=== PATIENT | male | born 1965 | race Two or more races ===

== ENCOUNTER 2019-12-11 11:07 | Emergency (ER) | payer OTHER, MEDICAID ==
[~2019-12-11] VITALS: Ht 172.7 cm; Wt 99.3 kg
--- NOTE | 2019-12-11 11:10 | NUR ---
jacek, from home, c/o lower back pain x 10 days,worsening the last 3 days 07/15 ps, s/p fall, was at [facility] 12/02/19 for same reason, to er bed 10, hooked to monitor, changed to hosp gown, warm blanket provided, awaiting md meléndez.
--- NOTE | 2019-12-11 11:26 | NUR ---
dr patiño at bedside
[2019-12-11] MEDS ORDERED: HYDROMORPHONE 1 MG/1 ML DISP.SYRIN ONE (11:44)
[2019-12-11] MEDS ORDERED: DIAZEPAM 5 MG TABLET ONE ×2 (11:44→14:02)
[2019-12-11] MEDS ORDERED: HYDROMORPHONE 1 MG/1 ML DISP.SYRIN IV ONE (12:00)
[2019-12-11] MEDS ORDERED: DIAZEPAM 10 MG TABLET PO ONE ×2 (12:00→14:00)
[2019-12-11] MEDS ORDERED: LIDOCAINE 5% (PATCH) 1 EA PATCH TP SCH (13:30)
--- NOTE | 2019-12-11 14:10 | NUR ---
IV removed. Catheter intact and site benign. Pressure and 4x4 applied to site. No bleeding noted.Patient discharged to home in stable condition. Written and verbal after care instructions given. Patient verbalizes understanding of instruction.
--- NOTE | 2019-12-11 14:17 | NUR ---
patient able to ambulate during discharge
[2019-12-11 14:22] VITALS: BP 141/70
== END 2019-12-11 14:23 | disposition home or self-care (01) ==
LOC: ER 11:07
DX: M54.5 Low back pain (principal); M79.7 Fibromyalgia; E11.40 Type 2 diabetes mellitus with diabetic neuropathy, unspecified; Z95.818 Presence of other cardiac implants and grafts
CPT/HCPCS: 72131; 72192; 73564; 73590; 96374; 99285; J1170

== ENCOUNTER 2020-12-31 23:37 | Emergency (ER) | payer OTHER, MEDICAID ==
[~2020-12-31] VITALS: Ht 172.7 cm; Wt 95.3 kg
[2021-01-01 00:07] LABS: MONOCYTES # (AUTO) 0.3 /CMM (0.1-1.30)
[2021-01-01 00:10] LABS: BASOPHILS % (AUTO) 0.8 % (0.0-2.0); EOSINOPHILS % (AUTO) 1.3 % (0.0-6.0); HEMATOCRIT 43 % (39-51); HEMOGLOBIN 14.3 g/dL (13.5-17.5); LYMPHOCYTES % (AUTO) 22.7 % (20.0-44.0); MEAN CORPUSCULAR HGB CONC 33 g/dl (31.0-36.0); MEAN CORPUSCULAR VOLUME 88 fL (80-96); MONOCYTES % (AUTO) 6.6 % (2.0-12.0); NEUTROPHILS % (AUTO) 68.6 % (43.0-81.0); PLATELET COUNT (AUTO) 88 /CMM (150-450); RED BLOOD CELL COUNT(AUTO) 4.87 MIL/uL (4.5-6.0); WHITE BLOOD COUNT (AUTO) 4.3 K/uL (4.3-11.0)
[2021-01-01 00:14] LABS: POTASSIUM 4.3 mmol/L (3.5-5.1)
--- NOTE | 2021-01-01 00:15 | NUR ---
PATIENT TO ER BED 12 C/O LOWER BILATERAL ABDOMINAL PAIN AND RIGHT LOWER BACK.PATIENT IS AAOX4. NO SOB. BREATHING EVENLY AND UNLABORED ON ROOM AIR.
[2021-01-01] MEDS ORDERED: MORPHINE SULFATE INJ 4 MG/ML DISP.SYRIN ONE (00:16)
[2021-01-01 00:18] LABS: CALCIUM, SERUM 8.9 mg/dL (8.5-10.1)
[2021-01-01] MEDS ORDERED: MORPHINE SULFATE INJ 4 MG/ML DISP.SYRIN IV ONE (00:30)
[2021-01-01] MEDS ORDERED: IOHEXOL-300 100 ML VIAL IV ONE (00:34)
[2021-01-01 01:03] LABS: NEUTROPHILS % (MANUAL) 69 (42-76)
[2021-01-01 01:04] LABS: EOSINOPHILS % (MANUAL) 4 % (0-4); LYMPHOCYTES % (MANUAL) 20 % (16-48); MONOCYTES % (MANUAL) 7 % (0-11.0)
[2021-01-01] MEDS ORDERED: HYDROCODONE/APAP 5/325MG TABLET ONE (01:57)
[2021-01-01] MEDS ORDERED: HYDROCODONE/APAP 5/325MG TABLET PO ONE (02:00)
--- NOTE | 2021-01-01 02:14 | NUR ---
IV removed. Catheter intact and site benign. Pressure and 4x4 applied to site. No bleeding noted.
--- NOTE | 2021-01-01 02:14 | NUR ---
Patient discharged to home in stable condition. Written and verbal after care instructions given. Patient verbalizes understanding of instruction.
[2021-01-01 02:25] VITALS: BP 124/74
== END 2021-01-01 02:26 | disposition home or self-care (01) ==
LOC: ER 23:40
DX: K40.20 Bilateral inguinal hernia, without obstruction or gangrene, not specified as recurrent (principal); G89.29 Other chronic pain; M79.7 Fibromyalgia; Z95.818 Presence of other cardiac implants and grafts
CPT/HCPCS: 36415; 74177; 80048; 85007; 85025; 96374; 99285; J2270; Q9967

== ENCOUNTER 2021-11-27 23:09 | Emergency (ER) | payer OTHER ==
[~2021-11-27] VITALS: Ht 165.1 cm; Wt 97.5 kg
--- NOTE | 2021-11-27 23:15 | NUR ---
PATIENT BIBRA 86 FROM HOME C/O CP X 1 HR AND HAVING CHILLS WITH BODY ACHE. PATEINT IS A/O X 4, RR EVEN AND UNLABORED. PATIENT CONNECTED TO CARDAIC AND POX MONITOR. PT IS AFEBRILE.
--- NOTE | 2021-11-27 23:37 | NUR ---
COVID SWAB COLLECTED SENT TO LAB
--- NOTE | 2021-11-27 23:48 | NUR ---
LINE ESTABLISHED LEFT FA #20.
--- NOTE | 2021-11-27 23:55 | NUR ---
URINE COLLECTED SENT TO LAB.
[2021-11-27 23:58] LABS: HEMATOCRIT 42 % (39-51); HEMOGLOBIN 13.9 g/dL (13.5-17.5); LYMPHOCYTES # (AUTO) 1.2 K/uL (0.8-4.8); LYMPHOCYTES % (AUTO) 24.4 % (20.0-44.0); MEAN CORPUSCULAR HGB CONC 34 g/dl (31.0-36.0); MEAN CORPUSCULAR VOLUME 88 fL (80-96); MONOCYTES # (AUTO) 0.3 K/uL (0.1-1.30); MONOCYTES % (AUTO) 5.2 % (2.0-12.0); NEUTROPHILS # (AUTO) 3.1 K/uL (1.8-8.9); NEUTROPHILS % (AUTO) 63.4 % (43.0-81.0); PLATELET COUNT (AUTO) 76 K/uL (150-450); RED BLOOD CELL COUNT(AUTO) 4.71 MIL/uL (4.5-6.0)
[2021-11-28] MEDS ORDERED: HYDROMORPHONE 1 MG/1 ML DISP.SYRIN ONE ×2 (00:04→01:46)
[2021-11-28 00:06] LABS: CARBON DIOXIDE 27 mmol/L (21-32); CHLORIDE 103 mmol/L (98-107); GLUCOSE 201 mg/dL (74-106); POTASSIUM 4.5 mmol/L (3.5-5.1); SODIUM SERUM 138 mmol/L (136-145); UREA NITROGEN, BLOOD 22 mg/dL (7-18)
[2021-11-28 00:12] LABS: ALANINE AMINOTRANSFERASE 51 U/L (12-78); ALBUMIN 3.6 g/dL (3.4-5.0); ALKALINE PHOSPHATASE 69 U/L (46-116); ASPARTATE AMINOTRANSFERASE 35 U/L (15-37); BILIRUBIN,TOTAL 0.7 mg/dL (0.2-1.0); TOTAL PROTEIN, SERUM 7.3 g/dL (6.4-8.2)
[2021-11-28 00:20] LABS: BILIRUBIN,URINE NEGATIVE (NEGATIVE); COLOR,URINE YELLOW (YELLOW); LEUKOCYTE ESTERASE ,URINE NEGATIVE (NEGATIVE); NITRITE, URINE NEGATIVE (NEGATIVE); PROTEIN,URINE TRACE mg/dl (NEGATIVE); UGLUCOSE >=1000 mg/dL (NEGATIVE); UROBILINOGEN,URINE 0.2 EU/dL (0.2)
[2021-11-28] MEDS ORDERED: HYDROMORPHONE 1 MG/1 ML DISP.SYRIN IV ONE ×2 (00:30→02:00)
[2021-11-28 00:31] LABS: CREATINE KINASE, TOTAL 48 U/L (39-308)
[2021-11-28] MEDS ORDERED: IV NS 0.9% 1,000 ML BAG IV ONE (01:30)
--- NOTE | 2021-11-28 01:35 | NUR ---
patient would like to leve the hospital AMA. Dr Husain spoke to the patient. He stated he will stay at the hospital if he receives Gbapentin and Dilaudid for pain. Dr Husain is going to place the order
[2021-11-28] MEDS ORDERED: GABAPENTIN 100 MG CAPSULE ONE (01:47)
[2021-11-28] MEDS ORDERED: GABAPENTIN 100 MG CAPSULE PO ONE (02:00)
[2021-11-28] MEDS ORDERED: NITROGLYCERIN PACKET 1 GM PACKET ONE (02:09)
--- NOTE | 2021-11-28 02:20 | NUR ---
patient is undecided if he wasnts to stay at the hospital and get admitted or leave the hospital AMA. Dr Husain had multiple trips and long discussion with the pt regarding leaving the hospital AMA and risk vs. benefits of getting admitted. pt will let us know about his final decision.
[2021-11-28] MEDS ORDERED: NITROGLYCERIN 0.4 MG/TAB BOTTLE SL ONE (02:30)
[2021-11-28 03:00] VITALS: BP 153/77
--- NOTE | 2021-11-28 03:11 | NUR ---
IV removed as patient wished to leave AMA. Catheter intact and site benign. Pressure and 4x4 applied to site. No bleeding noted.
[2021-11-28 03:12] LABS: BILIRUBIN,DIRECT 0.3 mg/dL (0.0-0.2)
--- NOTE | 2021-11-28 03:12 | NUR ---
Patient does not wish to proceed with medical care recommended by Dr. Husain Patient given information related to possible complications, up to and including , which could occur as a result of leaving the hospital at this time. Patient verbalizes understanding of risks involved due to leaving against medical advice. Patient has signed AMA form.
[2021-11-28 15:11] LABS: EOSINOPHILS % (MANUAL) 7 % (0-4); LYMPHOCYTES % (MANUAL) 25 % (16-48); MONOCYTES % (MANUAL) 8 % (0-11.0); NEUTROPHILS % (MANUAL) 60 (42-76)
== END 2021-11-28 03:20 | disposition left against medical advice (07) ==
LOC: ER 23:09
DX: R07.9 Chest pain, unspecified (principal); M79.10 Myalgia, unspecified site; E87.2 Acidosis; Z20.822 Contact with and (suspected) exposure to COVID-19; I10 Essential (primary) hypertension; I25.2 Old myocardial infarction; M79.7 Fibromyalgia; I25.10 Atherosclerotic heart disease of native coronary artery without angina pectoris; R73.9 Hyperglycemia, unspecified; Z95.1 Presence of aortocoronary bypass graft; Z95.5 Presence of coronary angioplasty implant and graft; R94.31 Abnormal electrocardiogram [ECG] [EKG]; Z53.29 Procedure and treatment not carried out because of patient's decision for other reasons
CPT/HCPCS: 36415 ×2; 71045; 80053; 81003; 82248; 82550; 83605 ×2; 84145; 84484 ×2; 85007; 85025; 85378; 86140; 87040 ×2; 87086; 87426; 93005 ×2; 96374; 96376; 99285; J1170 ×2; C9803; U0003